=== PATIENT | female | born 1980 | race Caucasian/White ===

== ENCOUNTER 2018-07-18 19:16 | Emergency (ER) | payer OTHER ==
[2018-07-18] MEDS ORDERED: KETOROLAC TROMETHAMINE 60 MG/2 ML SDV IM ONE ×2 (20:21→21:39)
[2018-07-18] MEDS ORDERED: CYCLOBENZAPRINE HCL 10 MG TABLET PO ONE (20:21)
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
[2018-07-18 21:02] VITALS: BP 161/103
[2018-07-18 21:21] LABS: APPEARANCE,URINE SLIGHTLY-CLOUDY; BILIRUBIN,URINE NEGATIVE (NEGATIVE); COLOR,URINE COLORLESS; GLUCOSE, URINE NEGATIVE (NEGATIVE); KETONES,URINE NEGATIVE (NEGATIVE); LEUKOCYTE ESTERASE,URINE NEGATIVE (NEGATIVE); NITRITE,URINE NEGATIVE (NEGATIVE); PROTEIN,URINE NEGATIVE (NEGATIVE); URINE SPECIFIC GRAVITY 1.004; UROBILINOGEN,URINE NEGATIVE mg/dL (<2.0)
[2018-07-18] MEDS ORDERED: KETOROLAC TROMETHAMINE INJ/PF 30 MG/1 ML SDV IV ONE (22:00)
--- NOTE | 2018-07-18 22:47 | RADIOLOGY REPORT (SQ) ---
EXAM DESCRIPTION: XR CERVICAL SPINE 4-5 VIEWS COMPLETED DATE/TME: 07/18/2018 22:08 CLINICAL HISTORY: 38 years, Female, pain Findings: Vertebral body heights are intact. Moderate degenerative changes at C4-C6. No significant prevertebral soft tissue swelling. Alignment is intact. Odontoid process is intact. The facets are normally aligned. IMPRESSION: Moderate degenerative changes. No fracture.
--- NOTE | 2018-07-18 22:49 | RADIOLOGY REPORT (SQ) ---
EXAM DESCRIPTION: XR THORACIC SPINE 2 VIEWS COMPLETED DATE/TME: 07/18/2018 22:08 CLINICAL HISTORY: 38 years, Female, pain Findings: Vertebral body heights are intact. Alignment is intact. No subluxation. Pedicles are intact. IMPRESSION: No fracture.
--- NOTE | 2018-07-18 22:54 | RADIOLOGY REPORT (SQ) ---
EXAM DESCRIPTION: XR LUMBAR SPINE ANTEROPOSTERIOR, LATERAL, AND OBLIQUES COMPLETED DATE/TME: 07/18/2018 22:08 CLINICAL HISTORY: 38 years, Female, pain Findings: Vertebral body heights are intact. Alignment is intact. No subluxation. Pedicles are intact. IMPRESSION: No fracture.
== END 2018-07-18 23:44 | disposition home or self-care (01) ==
LOC: ER 19:16
DX: M54.31 Sciatica, right side (principal); R35.0 Frequency of micturition; F17.210 Nicotine dependence, cigarettes, uncomplicated
CPT/HCPCS: 99284; 96372; 81025; 81001; 72050; 72110; 72070; J1885